=== PATIENT | female | born 1950 | race Caucasian/White ===

== ENCOUNTER 2017-10-23 15:55 | Outpatient (RCR) | payer OTHER ==
[~2017-10-23 15:55] MED LIST: ACET-1966 PO; ADV250/50 INH; ASCO500C9 PO; B CO; BACL-1 PO; BIS10S PR; BUPR-149 PO; BUPR-474 PO; BUPXL150 PO; CETI-176 PO; CHOL200022 PO; DEXL60CA6 PO; ESC10 PO; ESTR42.59 VG; FAMO-67 PO; FERR-63 PO; GOLYTE PO; LEV125 PO; LEV25 PO; LEVO150T72 PO; LEVO5TAB28 PO; LIFI1DRO OP; MAGN500C10 PO; MOMR NS; NORT50CA40 PO; PRO25 PO; S-AD400T7 PO; SERT-177 PO; SERT20OR6 PO; TRIA10.8; [UNRECOGNIZED DRUG - REMARK]
[2017-10-23 16:03] VITALS: BP 117/70
[2017-10-23 16:31] LABS: PLATELET COUNT, AUTOMATED 391 K/uL (150-450)
== END 2018-01-20 ==
LOC: SPU 15:55
PROVIDERS: ATTEND Internal Medicine Medical Oncology
DX: D64.9 Anemia, unspecified (principal)
CPT/HCPCS: 36415; 82728; 83540; 83550; 85025

== ENCOUNTER 2018-01-21 10:37 | Outpatient (RCR) | payer OTHER ==
[2018-01-22 16:26] LABS: PLATELET COUNT, AUTOMATED 382 K/uL (150-450)
== END 2018-01-22 13:54 | disposition home or self-care (01) ==
LOC: SPU 10:37
PROVIDERS: ATTEND Internal Medicine Medical Oncology
DX: D64.9 Anemia, unspecified (principal)
CPT/HCPCS: 82728; 83540; 83550; 85025

== ENCOUNTER 2018-01-22 16:05 | Outpatient (RCR) | payer OTHER ==
[2018-01-22 16:52] VITALS: BP 109/71
== END 2018-02-14 10:32 | disposition home or self-care (01) ==
LOC: SPU 16:05
PROVIDERS: ATTEND Internal Medicine Medical Oncology
DX: D64.9 Anemia, unspecified (principal)
CPT/HCPCS: 36415

== ENCOUNTER → 2018-05-01 | Outpatient (CLI) | payer OTHER ==
--- NOTE | 2018-05-01 13:49 | RADIOLOGY IMAGING REPORT ---
FACILITY: [facility] [place] PATIENT NAME: IKE AVILES : [id number] MR: [id number] V: [id number] EXAM DATE: ORDERING PHYSICIAN: MARCO EL TECHNOLOGIST: Rianna Rich PROCEDURE:BILATERAL DIGITAL SCREENING MAMMOGRAM WITH CAD ASSISTED INTERPRETATION & 3D TOMOSYNTHESIS COMPARISON:Prior mammograms: 03/29/17, 07/06/15, 06/10/13. INDICATIONS:screening FINDINGS: Small amount of fibroglandular tissue is seen throughout the breasts. Most of the parenchymal pattern has remained stable allowing for difference in mammographic technique & patient positioning. There is a small focal area of increased density in the medial portion of the Left breast in the middle 1/3 for which Spot compression view is recommended. DIAGNOSTIC CATEGORY 0--INCOMPLETE: NEED ADDITIONAL IMAGING EVALUATION. RECOMMENDATIONS: ADDITIONAL MAMMOGRAPHIC VIEWS REQUIRED: LEFT BREAST. IMPRESSION: BIRADS 0: Incomplete. Additional view of the Left breast is recommended as described. Dictated by: Lula Mcdonnell M.D. on 05/01/2018 at 11:37 Transcribed by: BETH on 05/01/2018 at 11:52 Approved by: Lula Mcdonnell M.D. on 05/01/2018 at 13:49 [facility]
== END ==
LOC: MAMO 01:47
PROVIDERS: ATTEND Family Medicine
DX: Z12.31 Encounter for screening mammogram for malignant neoplasm of breast (principal); R92.8 Other abnormal and inconclusive findings on diagnostic imaging of breast
CPT/HCPCS: 77063; 77067

== ENCOUNTER → 2018-05-08 | Outpatient (CLI) | payer OTHER ==
[~2018-05-08] MED LIST changes: +CHOL200018 PO; -CHOL200022 PO
--- NOTE | 2018-05-08 15:33 | RADIOLOGY IMAGING REPORT ---
FACILITY: [facility] PATIENT NAME: IKE AVILES : [id number] MR: [id number] V: [id number] EXAM DATE: [id number] ORDERING PHYSICIAN: MARCO EL TECHNOLOGIST: Monica Ladd PROCEDURE:LEFT DIGITAL DIAGNOSTIC MAMMOGRAM WITH CAD ASSISTED INTERPRETATION & 3D TOMOSYNTHESIS COMPARISON:Prior mammograms 05/01/18, 03/29/17, 07/06/15, 06/10/13. INDICATIONS:FURTHER EVAL FINDINGS: The patient returned for Spot compression views in the Left CC projection with 3D breast Tomosynthesis. The focal area of increased density in the medial portion of the Left breast on the recent Left CC view appeared compressible and apparently represented a summation shadow. There is no demonstration of malignant appearing mass or calcification in the Left breast. DIAGNOSTIC CATEGORY 2--BENIGN FINDING. RECOMMENDATIONS: ROUTINE MAMMOGRAM AND CLINICAL EVALUATION. IMPRESSION: BIRADS 2: Benign finding. No significant abnormality is seen. Dictated by: Lula Mcdonnell M.D. on 05/08/2018 at 8:36 Transcribed by: BETH on 05/08/2018 at 8:48 Approved by: Lula Mcdonnell M.D. on 05/08/2018 at 15:32 [facility]
== END ==
LOC: MAMO 00:53
PROVIDERS: ATTEND Family Medicine
DX: R92.2 Inconclusive mammogram (principal)
CPT/HCPCS: 77061; 77065